=== PATIENT | female | born 1945 | race Caucasian/White ===

== ENCOUNTER → 2018-04-15 09:01 | Outpatient (CLI) | payer MEDICARE, SELFPAY ==
--- NOTE | 2018-04-15 | DI.MG.S_ITS ---
BILATERAL DIGITAL SCREENING MAMMOGRAM 3D/2D WITH CAD: 04/15/2018 CLINICAL: Routine screening. Comparison is made to exams dated: 03/17/2014 mammogram, 01/21/2006 mammogram, and 10/28/2003 mammogram - [facility]. There are scattered fibroglandular elements in both breasts. Current study was also evaluated with a Computer Aided Detection (CAD) system. No significant masses, calcifications, or other findings are seen in either breast. There has been no significant interval change. IMPRESSION: NEGATIVE There is no mammographic evidence of malignancy. A 1 year screening mammogram is recommended. This exam was interpreted at Station ID: [id number]. NOTE: For mammograms, a report in lay terms will be sent to the patient. Approximately 15% of breast malignancies will not be visualized mammographically. In the management of a palpable breast mass, a negative mammogram must not discourage biopsy of a clinically suspicious lesion. Electronically Signed By: Marely jarquin/jovan:04/15/2018 12:29:30 letter sent: Normal Exam ACR BI-RADS Category 1: Negative 3341F
== END ==
PROVIDERS: Visit Provider Family Medicine
DX: Z12.31 Encounter for screening mammogram for malignant neoplasm of breast (principal); M85.851 Other specified disorders of bone density and structure, right thigh; Z78.0 Asymptomatic menopausal state; Z82.62 Family history of osteoporosis; Z87.891 Personal history of nicotine dependence
CPT/HCPCS: 77063; 77067; 77080

== ENCOUNTER → 2020-07-20 08:55 | Outpatient (CLI) | payer MEDICARE, SELFPAY ==
--- NOTE | 2020-07-20 | DI.MG.S_ITS ---
BILATERAL DIGITAL SCREENING MAMMOGRAM 3D/2D WITH CAD: 07/20/2020 CLINICAL: Routine screening. Comparison is made to exam dated: 04/15/2018 [facility]. There are scattered fibroglandular elements in both breasts. Current study was also evaluated with a Computer Aided Detection (CAD) system. No significant masses, calcifications, or other findings are seen in either breast. There has been no significant interval change. IMPRESSION: NEGATIVE There is no mammographic evidence of malignancy. A 1 year screening mammogram is recommended. This exam was interpreted at Station ID: [id number]. NOTE: For mammograms, a report in lay terms will be sent to the patient. Approximately 15% of breast malignancies will not be visualized mammographically. In the management of a palpable breast mass, a negative mammogram must not discourage biopsy of a clinically suspicious lesion. Electronically Signed By: Yoni may/jovan:07/20/2020 09:36:15 letter sent: Normal Exam ACR BI-RADS Category 1: Negative 3341F
== END ==
PROVIDERS: PCP Family Medicine; Referring Provider Family Medicine; Visit Provider Family Medicine
DX: Z12.31 Encounter for screening mammogram for malignant neoplasm of breast (principal)
CPT/HCPCS: 77063; 77067

== ENCOUNTER → 2020-10-12 08:53 | Outpatient (CLI) | payer MEDICARE, SELFPAY ==
--- NOTE | 2020-10-12 | DI.MRI.S_ITS ---
PROCEDURE: MR SHOULDER RT WO CON INDICATIONS: RIGHT SHOULDER PAIN TECHNIQUE: Noncontrast oblique coronal T2 fast spin echo with fat saturation, oblique sagittal T1 spin echo and T2 fast spin echo with fat saturation, axial T1 spin echo and T2 fast spin echo with fat saturation through the shoulder. COMPARISON: None. FINDINGS: Image quality: Excellent. Rotator cuff: Moderate T2 signal elevation throughout the supraspinatus and infraspinatus tendons at the humeral insertion site, indicating tendinopathy. Superimposed high-grade bursal surface tearing of the posterior supraspinatus tendon at the humeral insertion site, demonstrating musculotendinous junction extension, measuring roughly 7 mm anteroposterior. Superimposed low-grade partial-thickness intrasubstance tearing of the anterior, mid, and posterior infraspinatus tendon, demonstrating musculotendinous junction extension. There is low-grade partial-thickness intrasubstance tearing of the upper and mid subscapularis tendon at the humeral insertion site, extending to the musculotendinous junction. Teres minor is intact. No rotator cuff atrophy. Bones and bursae: No bone marrow contusions or fractures. Moderate acromioclavicular joint degeneration. The acromion demonstrates conventional anatomy, without an os acromiale. A small amount of subacromial-subdeltoid or subcoracoid bursal fluid is present. Capsule and soft tissues: Diffuse degenerative fraying of the glenoid labrum is present.. The long head of the biceps tendon demonstrates normal location and morphology. The rotator interval appears normal, without fibrosis. The coracohumeral ligament is normal in thickness. IMPRESSION: 1. Supraspinatus and infraspinatus tendinopathy. 2. Superimposed focal high-grade tearing of the posterior supraspinatus. 3. Superimposed low-grade tearing of the infraspinatus and subscapularis tendon. 3. Subacromial bursitis. 4. Acromioclavicular joint osteoarthritis. 5. Diffuse degenerative glenoid labral tearing. Dictated by: Logan Cain M.D. on 10/12/2020 at 10:02 Approved by: Logan Cain M.D. on 10/12/2020 at 10:04
== END ==
PROVIDERS: PCP Family Medicine; Referring Provider Family Medicine; Visit Provider Family Medicine
DX: M25.511 Pain in right shoulder (principal); M75.111 Incomplete rotator cuff tear or rupture of right shoulder, not specified as traumatic; M75.51 Bursitis of right shoulder; S43.491A Other sprain of right shoulder joint, initial encounter; G89.29 Other chronic pain
CPT/HCPCS: 73221

== ENCOUNTER → 2022-12-05 10:56 | Outpatient (CLI) | payer MEDICARE, SELFPAY ==
--- NOTE | 2022-12-05 | DI.MG.S_ITS ---
BILATERAL DIGITAL SCREENING MAMMOGRAM 3D/2D WITH CAD: 12/05/2022 CLINICAL: Routine screening. Comparison is made to exams dated: 07/20/2020 mammogram, 04/15/2018 mammogram - [facility], and 03/17/2014 mammogram - [facility]. There are scattered areas of fibroglandular density in both breasts (category b / 25%-50% glandular tissue). Current study was also evaluated with a Computer Aided Detection (CAD) system. No significant masses, calcifications, or other findings are seen in either breast. There has been no significant interval change. IMPRESSION: NEGATIVE There is no mammographic evidence of malignancy. A 1 year screening mammogram is recommended. Based on the Tyrer Cuzick model (a risk assessment model) the patient's lifetime risk is 2.5% and her 10 year risk is 0.0%. According to the ACR, ACS, and NCCN guidelines, an annual breast MRI exam along with mammogram is recommended if the patient's lifetime risk is 20% or greater. This exam was interpreted at Station ID: [id number]. NOTE: For mammograms, a report in lay terms will be sent to the patient. Approximately 15% of breast malignancies will not be visualized mammographically. In the management of a palpable breast mass, a negative mammogram must not discourage biopsy of a clinically suspicious lesion. Electronically Signed By: Arun morrow/jovan:12/05/2022 11:37:43 letter sent: Normal Exam ACR BI-RADS Category 1: Negative 3341F
== END ==
PROVIDERS: PCP Family Medicine; Referring Provider Family Medicine; Visit Provider Family Medicine
DX: Z12.31 Encounter for screening mammogram for malignant neoplasm of breast (principal)
CPT/HCPCS: 77063; 77067

== ENCOUNTER → 2023-08-05 09:56 | Outpatient (CLI) | payer MEDICARE, SELFPAY ==
--- NOTE | 2023-08-05 | DI.RAD.S_ITS ---
Bone Density Report Name: SUMAYA BANKS Age: 77 Sex: Female Ethnicity: White Date of : 1945 Indication: postmenopausal; screening for osteoporosis; Referring Provider: TAMIKO LAMBERT Study: Bone densitometry was performed. Exam Date: August 05, 2023 Accession number: [id number] Bone Density: Region BMD T-score Z-score Classification AP Spine(L1, L3, L4) 1.135 0.7 3.4 Normal Femoral Neck (Left) 0.738 -1.0 1.3 Normal Total Hip (Left) 0.932 -0.1 1.9 Normal Total Forearm (Left) 0.621 0.8 3.7 Normal 1/3 Forearm (Left) 0.739 0.7 3.7 Normal UD Forearm (Left) 0.471 0.5 2.6 Normal World Health Organization criteria for BMD impression classify patients as: Normal (T-score at or above -1.0), Osteopenia (T-score between -1.0 and -2.5), or Osteoporosis (T-score at or below -2.5). 10-year Fracture Risk: FRAX not reported because: All T-scores for Spine Total, Hip Total, Femoral Neck at or above -1.0 Previous Exams: -- Region Exam Age BMD T-score BMD Change BMD Change Date g/cm2 vs Baseline vs Previous -- AP Spine (L1,L3-L4) 08/05/2023 77 1.135 0.7 -0.032 (-2.7%)# -0.020 (-1.7%)# 04/15/2018 72 1.154 0.9 -0.012 (-1.0%) -0.012 (-1.0%) 04/12/2014 68 1.167 1.0 Total Hip(Left) 08/05/2023 77 0.932 -0.1 -0.028 (-2.9%)# 0.002 (0.3%)# 04/15/2018 72 0.930 -0.1 -0.030 (-3.1%)* -0.030 (-3.1%)* 04/12/2014 68 0.960 0.1 -- *Denotes significance at 95% confidence level, LSC for AP Spine = 0.022 g/cm2, LSC for Total Hip = 0.027 g/cm2 Rate of change results reflect vertebral levels common to all scans # Denotes dissimilar scan types or analysis methods Impression: The patient has normal bone mass. No significant bone loss was observed. Discussion: BONE DENSITY IS ABOVE THE MINIMUM DESIRABLE LEVEL AT ALL SKELETAL SITES TESTED. This patient's bone mineral density is above the minimum desirable level (T-score -1.0 or better) at all sites measured. The patient should follow a healthful lifestyle (good nutrition with adequate calcium and vitamin D, and appropriate weight-bearing exercise). Follow-Up: Consider repeating this study in 5 years or sooner if there is some new clinical indication. Reported by: JAYMIE WALTON MD on 08/05/2023 10:44:00 AM.
== END ==
PROVIDERS: PCP Family Medicine; Referring Provider Family Medicine; Visit Provider Family Medicine
DX: M85.89 Other specified disorders of bone density and structure, multiple sites (principal)
CPT/HCPCS: 77080; 77081